=== PATIENT | female | born 1980 | race African-American/Black ===

== ENCOUNTER 2018-03-30 07:57 | Emergency (ER) | payer MEDICAID, MEDICARE ==
[~2018-03-30] VITALS: Ht 157.5 cm; Wt 77.0 kg
[2018-03-30] MEDS ORDERED: FAMOTIDINE 20MG/2ML VIAL IV STA (12:16)
[2018-03-30] MEDS ORDERED: KETOROLAC 30MG/ML VIAL IV STA (12:16)
[2018-03-30] MEDS ORDERED: MORPHINE SULFATE 4 MG/ML CPJ (NOT FOR IM USE) IV STA (12:16)
[2018-03-30 12:55] LABS: HEMATOCRIT. 32.4 % (36.0-48.0); HEMOGLOBIN. 10.1 g/dL (12.0-16.0); MEAN CORPUSCULAR HEMOGLOBIN 21.9 pg (28.0-32.0); MEAN CORPUSCULAR VOLUME 70.2 fL (81.0-99.0); MEAN PLATELET VOLUME 7.7 fl (7.4-10.4); PLATELET 364 x1000/uL (130-400); RED BLOOD CELL COUNT 4.62 mill/uL (4.2-5.4); RED CELL DISTRIBUTION WIDTH 17.3 % (11.6-14.6)
[2018-03-30 13:02] LABS: CHLORIDE 105 mEq/L (98-107); CLARITY URINE CLEAR (CLEAR); COLOR URINE YELLOW (YELLOW); KETONES URINE NEGATIVE (NEGATIVE); LEUKOCYTE ESTERASE URINE NEGATIVE (NEGATIVE); NITRITE URINE NEGATIVE (NEGATIVE); OCCULT BLOOD URINE NEGATIVE (NEGATIVE); PH URINE 8.5 (4.5-8.0); PROTEIN URINE TRACE (NEGATIVE); SPECIFIC GRAVITY URINE 1.032 (1.005-1.030)
[2018-03-30 13:11] LABS: PROTHROMBIN TIME 10.3 sec (9.1-11.1)
[2018-03-30] MEDS ORDERED: ONDANSETRON HCL 4MG/2ML INJ IV ONE (13:15)
[2018-03-30 13:19] LABS: PLATELET ESTIMATE NORMAL
[2018-03-30] MEDS ORDERED: MORPHINE SULFATE 4 MG/ML CPJ (NOT FOR IM USE) IV ONE (13:30)
[2018-03-30 14:30] VITALS: BP 104/61
== END 2018-03-30 15:12 | disposition home or self-care (01) ==
LOC: ER 08:30
DX: K52.9 Noninfective gastroenteritis and colitis, unspecified (principal); R03.0 Elevated blood-pressure reading, without diagnosis of hypertension; D64.9 Anemia, unspecified
CPT/HCPCS: 36415; 80053; 81003; 81025; 83690; 85025; 85610; 96374; 96375; 96376; 99283; J1885; J2270; J2405; J3490; Z7610